=== PATIENT | male | born 1995 | race Hispanic/Latino ===

== ENCOUNTER 2017-01-17 12:08 | Emergency (ER) | payer OTHER ==
[~2017-01-17] VITALS: Ht 165.1 cm; Wt 81.8 kg
[~2017-01-17 12:08] MED LIST: AZIT250T4 PO; LORA10CA PO
[2017-01-17 12:20] VITALS: BP 130/72; PULSE 81; RESP 16; O2SAT 100
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
[2017-01-17] MEDS ORDERED: TdaP Vaccine 0.5 mL Inj IM ONE (12:30)
[2017-01-17] MEDS ORDERED: Lidocaine-Epi-Tetracaine Solution 3 mL Syringe TOPICAL ONE (12:30)
[2017-01-17 14:58] VITALS: BP 114/65; PULSE 68; RESP 16; O2SAT 99
== END 2017-01-17 14:59 | disposition home or self-care (01) ==
LOC: SED 12:08
DX: S01.01XA Laceration without foreign body of scalp, initial encounter (principal); Y04.0XXA Assault by unarmed brawl or fight, initial encounter; Y93.89 Activity, other specified; Y92.89 Other specified places as the place of occurrence of the external cause; Y99.8 Other external cause status; Z23 Encounter for immunization

== ENCOUNTER 2017-01-23 12:35 | Emergency (ER) | payer OTHER ==
[~2017-01-23] VITALS: Ht 165.1 cm; Wt 0.8 kg
[2017-01-23 13:00] VITALS: BP 111/49; PULSE 50; RESP 18; O2SAT 99
== END 2017-01-23 13:01 | disposition home or self-care (01) ==
LOC: SED 12:35
DX: Z48.02 Encounter for removal of sutures (principal)